=== PATIENT | female | born 1975 | race African-American/Black ===

== ENCOUNTER 2017-10-07 21:40 | Emergency (ER) | payer OTHER ==
--- NOTE | 2017-10-07 22:23 | ER ---
Nurse's Notes [facility] Name: Iza Negron Age: 42 yrs Sex: Female : 1975 Arrival Date: 10/07/2017 Time: 21:41 Bed 12 Private MD: Diagnosis: Sebaceous cyst Presentation: 10/07 21:48 Presenting complaint: Patient states: "knot" on scalp x several months/years. Reports sr5 area is tender and getting bigger in size. Transition of care: patient was not received from another setting of care. Onset of symptoms is unknown. Risk Assessment: Do you want to hurt yourself or someone else? Patient reports no desire to harm self or others. Initial Sepsis Screen: Does the patient meet any 2 criteria? No. Patient's initial sepsis screen is negative. Does the patient have a suspected source of infection? No. Patient's initial sepsis screen is negative. Care prior to arrival: None. 21:48 Method Of Arrival: Ambulatory sr5 21:48 Acuity: JUVENTINO 4 sr5 Triage Assessment: 21:49 General: Appears in no apparent distress. Behavior is calm, cooperative. Pain: sr5 Complains of pain in right frontal area Quality of pain is described as pressure. Neuro: No deficits noted. Cardiovascular: No deficits noted. Respiratory: No deficits noted. Derm: raised area noted to scalp, pt states she tries to squeeze it but nothing comes out. Reports this area has been there for months possibly years, has never gone away completely, but is getting larger in size. 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 - Social history:: Smoking status: Patient/guardian denies using tobacco, never smoked. - Ebola Screening: : Patient negative for fever greater than or equal to 101.5 degrees Fahrenheit, and additional compatible Ebola Virus Disease symptoms. Screenin:56 Abuse screen: Denies threats or abuse. Denies injuries from another. Nutritional bs1 screening: No deficits noted. Tuberculosis screening: No symptoms or risk factors identified. Fall Risk None identified. Assessment: 21:56 General: Appears in no apparent distress. comfortable, Behavior is calm, cooperative, bs1 appropriate for age. Pain: Complains of pain in scalp and right frontal area. Neuro: Level of Consciousness is awake, alert, obeys commands. Cardiovascular: Heart tones S1 S2 present Capillary refill < 3 seconds Patient's skin is warm and dry. Respiratory: Airway is patent. GI: No signs and/or symptoms were reported involving the gastrointestinal system. : No signs and/or symptoms were reported regarding the genitourinary system. EENT: No signs and/or symptoms were reported regarding the EENT system. Derm: Skin is intact, knot on right frontal scalp. Musculoskeletal: Circulation, motion, and sensation intact. Capillary refill < 3 seconds, Range of motion: intact in all extremities. 22:35 Reassessment: Patient appears in no apparent distress at this time. Patient and/or bs1 family updated on plan of care and expected duration. Pain level reassessed. Patient is alert, oriented x 3, equal unlabored respirations, skin warm/dry/pink. Patient states understanding of discharge instructions/POC. Vital Signs: 21:49 BP 125 / 73; Pulse 73; Resp 12; Temp 97.9; Pulse Ox 100% on R/A; Weight 99.79 kg; sr5 Height 6 ft. 1 in. (185.42 cm); Pain 8/10; 22:36 BP 111 / 65; Pulse 70; Resp 16; Pulse Ox 100% ; Pain 5/10; bs1 21:49 Body Mass Index 29.03 (99.79 kg, 185.42 cm) sr5 ED Course: 21:41 Patient arrived in ED. es 21:49 Triage completed. sr5 21:49 Arm band placed on Patient placed in an exam room. sr5 21:52 Hamilton Jefferson NP is PHCP. pm1 21:53 Hermilo Chao MD is Attending Physician. pm1 21:53 Paty Richards, KENNETH is Primary Nurse. bs1 21:56 Patient has correct armband on for positive identification. Pulse ox on. NIBP on. bs1 22:22 Saleem Perez MD is Referral Physician. pm1 22:22 Antwan Calderon MD is Referral Physician. pm1 22:35 No provider procedures requiring assistance completed. Patient did not have IV access bs1 during this emergency room visit. Administered Medications: No medications were administered Outcome: 22:22 Discharge ordered by MD. pm1 22:36 Discharged to home bs1 22:36 Discharged to home ambulatory. 22:36 Condition: stable 22:36 Discharge instructions given to patient, Instructed on discharge instructions, follow up and referral plans. medication usage, Demonstrated understanding of instructions, follow-up care, medications, Prescriptions given X 2. 22:37 Patient left the ED. bs1 Signatures: Gabriella Gutierrez Patrick, NP DIE CLEANER pm1 Ish Leonard RN RN sr5 Paty Richards, RN RN bs1
--- NOTE | 2017-10-07 22:23 | EDPHYS ---
Physician Documentation [facility] Name: Iza Negron Age: 42 yrs Sex: Female : 1975 Arrival Date: 10/07/2017 Time: 21:41 Bed 12 Private MD: ED Physician Hermilo Chao HPI: 10/07 22:30 This 42 yrs old Black Female presents to ER via Ambulatory with complaints of KNOT ON pm1 HEAD. 22:30 the patient presents with a swollen area of the scalp. Description: raised. Onset: The pm1 symptoms/episode began/occurred Present to scalp for multiple years and slowly getting bigger. Possible cause(s): unknown. Associated signs and symptoms: Pertinent negatives: discharge, drainage, fever. Modifying factors: the symptoms are alleviated by nothing, the symptoms are aggravated by touching, combing hair. Severity of symptoms: in the emergency department the symptoms are actually worse. The patient has not recently seen a physician. 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 - Social history:: Smoking status: Patient/guardian denies using tobacco, never smoked. - Ebola Screening: : Patient negative for fever greater than or equal to 101.5 degrees Fahrenheit, and additional compatible Ebola Virus Disease symptoms. ROS: 22:30 Constitutional: Negative for fever, chills, and weight loss, Eyes: Negative for injury, pm1 pain, redness, and discharge, ENT: Negative for injury, pain, and discharge, Neck: Negative for injury, pain, and swelling, Cardiovascular: Negative for chest pain, palpitations, and edema, Respiratory: Negative for shortness of breath, cough, wheezing, and pleuritic chest pain, Abdomen/GI: Negative for abdominal pain, nausea, vomiting, diarrhea, and constipation, Back: Negative for injury and pain, : Negative for injury, bleeding, discharge, and swelling, MS/Extremity: Negative for injury and deformity. 22:30 Neuro: Negative for headache, weakness, numbness, tingling, and seizure. 22:30 Skin: Positive for of the scalp, bump. Exam: 22:30 Constitutional: This is a well developed, well nourished patient who is awake, alert, pm1 and in no acute distress. 22:30 Eyes: Pupils equal round and reactive to light, extra-ocular motions intact. Lids and lashes normal. Conjunctiva and sclera are non-icteric and not injected. Cornea within normal limits. Periorbital areas with no swelling, redness, or edema. ENT: Nares patent. No nasal discharge, no septal abnormalities noted. Tympanic membranes are normal and external auditory canals are clear. Oropharynx with no redness, swelling, or masses, exudates, or evidence of obstruction, uvula midline. Mucous membranes moist. Neck: Trachea midline, no thyromegaly or masses palpated, and no cervical lymphadenopathy. Supple, full range of motion without nuchal rigidity, or vertebral point tenderness. No Meningismus. Chest/axilla: Normal chest wall appearance and motion. Nontender with no deformity. No lesions are appreciated. Cardiovascular: Regular rate and rhythm with a normal S1 and S2. No gallops, murmurs, or rubs. Normal PMI, no JVD. No pulse deficits. Respiratory: Lungs have equal breath sounds bilaterally, clear to auscultation and percussion. No rales, rhonchi or wheezes noted. No increased work of breathing, no retractions or nasal flaring. Abdomen/GI: Soft, non-tender, with normal bowel sounds. No distension or tympany. No guarding or rebound. No evidence of tenderness throughout. Back: No spinal tenderness. No costovertebral tenderness. Full range of motion. Skin: Warm, dry with normal turgor. Normal color with no rashes, no lesions, and no evidence of cellulitis. MS/ Extremity: Pulses equal, no cyanosis. Neurovascular intact. Full, normal range of motion. Neuro: Awake and alert, GCS 15, oriented to person, place, time, and situation. Cranial nerves II-XII grossly intact. Motor strength 5/5 in all extremities. Sensory grossly intact. Cerebellar exam normal. Normal gait. 22:30 Head/face: Exam is negative for erythema, Noted is no obvious of injury or deformity except Tenderness to sebaceous cyst to scalp. Vital Signs: 21:49 BP 125 / 73; Pulse 73; Resp 12; Temp 97.9; Pulse Ox 100% on R/A; Weight 99.79 kg; sr5 Height 6 ft. 1 in. (185.42 cm); Pain 8/10; 22:36 BP 111 / 65; Pulse 70; Resp 16; Pulse Ox 100% ; Pain 5/10; bs1 21:49 Body Mass Index 29.03 (99.79 kg, 185.42 cm) sr5 MDM: 22:01 Patient medically screened. pm1 22:21 Data reviewed: vital signs. Data interpreted: Pulse oximetry: on room air is 100 %. pm1 Interpretation: normal. Counseling: I had a detailed discussion with the patient and/or guardian regarding: the historical points, exam findings, and any diagnostic results supporting the discharge/admit diagnosis, the need for outpatient follow up, for definitive care, a general surgeon, a plastic surgeon, to return to the emergency department if symptoms worsen or persist or if there are any questions or concerns that arise at home. Administered Medications: No medications were administered Disposition: 10/08 04:46 Co-signature as Attending Physician, Hermilo Chao MD I agree with the assessment and tw4 plan of care. Attestation: The patient's history, exam findings, diagnostics, and a summary of any interventions or procedures was reviewed in detail with Hamilton Jefferson NP. Disposition: 10/07/17 22:22 Discharged to Home. Impression: Sebaceous cyst. - Condition is Stable. - Discharge Instructions: Epidermal Cyst. - Prescriptions for Tylenol- Codeine #3 300-30 mg Oral Tablet - take 2 tablets by ORAL route every 6 hours As needed; 20 tablet. Bactrim DS 800- 160 mg Oral Tablet - take 1 tablet by ORAL route every 12 hours for 10 days; 20 tablet. - Medication Reconciliation Form, Thank You Letter, Antibiotic Education, Prescription Opioid Use form. - Follow up: Emergency Department; When: As needed; Reason: Worsening of condition. Follow up: Saleem Perez MD; When: 2 - 3 days; Reason: Recheck today's complaints, Continuance of care, Re-evaluation by your physician. Follow up: Antwan Calderon MD; When: 2 - 3 days; Reason: Recheck today's complaints, Continuance of care, Re-evaluation by your physician. - Problem is new. - Symptoms have improved. Signatures: Hamilton Jefferson IT SUPPORT CONSULTANT IT SUPPORT CONSULTANT pm1 Ish Leonard RN RN sr5 Paty Richards RN RN bs1 Hermilo Chao MD MD tw4 Corrections: (The following items were deleted from the chart) 10/07 22:37 22:22 10/07/2017 22:22 Discharged to Home. Impression: Sebaceous cyst. Condition is bs1 Stable. Forms are Medication Reconciliation Form, Thank You Letter, Antibiotic Education, Prescription Opioid Use. Follow up: Emergency Department; When: As needed; Reason: Worsening of condition. Follow up: Saleem Perez; When: 2 - 3 days; Reason: Recheck today's complaints, Continuance of care, Re-evaluation by your physician. Follow up: Antwan Calderon; When: 2 - 3 days; Reason: Recheck today's complaints, Continuance of care, Re-evaluation by your physician. Problem is new. Symptoms have improved. pm1
[2017-10-07 22:47] VITALS: TEMP 97.9; O2SAT 100
[2017-10-07 22:49] VITALS: BP 111/65
== END 2017-10-07 22:37 | disposition home or self-care (01) ==
LOC: ER 21:40
DX: L72.3 Sebaceous cyst (principal)
CPT/HCPCS: 99283

== ENCOUNTER 2017-10-14 10:06 | Day surgery (SDC) | payer OTHER ==
[~2017-10-14 10:06] MED LIST: CEFAZOLIN/SWI 1gm 1 GM/10 ML SYR IVP SCH
[2017-10-14] MEDS ORDERED: Ringers Lactate 1,000 ML IV ONE (10:22)
[2017-10-14] MEDS ORDERED: CEFAZOLIN/SWI 1gm 1 GM/10 ML SYR ONE (10:22)
[2017-10-14 10:29] LABS: Specific Gravity 1.025 (1.005-1.030)
[2017-10-14] MEDS ORDERED: BUPIVACA 0.25%/EPI 0.0005% MDV 50 ML VIAL ONE (12:01)
[2017-10-14] MEDS ORDERED: FENTANYL CITR 100 MCG/2 ML ONE (12:01)
[2017-10-14] MEDS ORDERED: PROPOFOL 200 MG/20 ML VIAL IV ONE (12:01)
[2017-10-14] MEDS ORDERED: MIDAZOLAM HCL 2 MG/2 ML INJ ONE (12:01)
[2017-10-14] MEDS ORDERED: ONDANSETRON HCL 40 MG/20 ML VIAL ONE (12:29)
--- NOTE | 2017-10-14 12:50 | P.OP ---
Preoperative diagnosis: Right Scalp Mass Postoperative diagnosis: Right Scalp Sebaceous Cyst Primary procedure: Excision of Right Scalp Mass Anesthesia: GETA + Local Estimated blood loss: <20cc Specimen: Scalp Mass Findings: Sebaceous Cyst extending to galea Complications: None Transferred to: Recovery Room Condition: Good
[2017-10-14] MEDS: MEPERIDINE HCL 50 MG/ML AMP ONE ×4 (13:25→13:45)
[2017-10-14] MEDS ORDERED: PROMETHAZINE 25 MG/ML VIAL ONE (13:26)
[2017-10-14] MEDS ORDERED: CODEINE 30MG/APAP 300MG TAB ONE (15:12)
[2017-10-14 15:58] VITALS: BP 118/71; TEMP 97.1; O2SAT 100
--- NOTE | 2017-10-14 23:59 | OP ---
Date of Procedure: 10/14/2017 Surgeon: Saleem Perez MD, Preoperative Diagnosis: Right scalp mass. Postoperative Diagnosis: Right scalp mass/sebaceous cyst. Primary Procedure: Excision of right scalp mass. Anesthesia: General endotracheal, local, with 0.25% Marcaine with epinephrine. Estimated Blood Loss: Less than 20 cc. Specimen: Scalp mass. Findings: Sebaceous cyst extending to the galea. Complication: None. Disposition: Transferred to recovery room in good condition. Procedure In Detail: After informed consent was obtained, the patient was brought to the operating r oom, prepped and draped in the usual sterile fashion. After adequate anesthesia was achieved, approx imately a 5 x 4 cm scalp mass to the right of the parietal suture was appreciated. This was anesthet ized appropriately, and an ellipse of skin was taken down to allow for opening of the skin to the sub cutaneous layer. Blunt dissection continued down to expose a sebaceous cyst. The sebum from the ins jasmyne was expressed partially through the ruptured capsule on the surface. There was evidence of prior rupture as the capsule had spiculations. This was circumferentially dissected using both electrocau lee as well as blunt dissection until the capsule was completely removed. The area was copiously ir rigated. Hemostasis was achieved with electrocautery at this time. The skin flaps were then undermi kenny slightly. It appeared that the scalp mass went all the way down to the galea, but did not invest through it. Hemostasis was achieved with electrocautery. After copiously irrigating multiple times , there appeared to be good hemostasis as well. The subcutaneous layers were then reapproximated usi ng a continuous 3-0 Vicryl suture with good approximation of tissues. Bleeding was extremely minimal at this point. The area was irrigated once again and found to have good hemostasis. Therefore, the scalp was then closed using a vertical mattress suture and simple interrupted sutures to reapproxima te the edges. Sterile dressing was then placed over top. The patient tolerated the procedure well w ithout evidence of complication and transferred to PACU in good condition. All counts were correct a t the end of the case. JUSTINE/TAWANNA Voice ID: [id number] Report ID: [id number]
== END 2017-10-14 15:45 | disposition home or self-care (01) ==
LOC: OR 10:06
PROVIDERS: ATTEND Surgery
PROC: 0JB00ZZ Excision of Scalp Subcutaneous Tissue and Fascia, Open Approach (ICD-10-PCS; principal; 2017-10-14 11:45)
DX: L72.11 Pilar cyst (principal)
CPT/HCPCS: 81025; 88304; 88305; J0690; J2175; J2250; J2405; J2550; J3010

== ENCOUNTER 2018-01-29 16:17 | Emergency (ER) | payer OTHER ==
--- NOTE | 2018-01-29 19:45 | ER ---
Nurse's Notes [facility] Name: Iza Negron Age: 42 yrs Sex: Female : 1975 Arrival Date: 01/29/2018 Time: 16:17 Bed 20 Private MD: None, None Diagnosis: Acute upper respiratory infection, unspecified Presentation: 01/29 16:58 Presenting complaint: Patient states: cough, congestion, body aches, and sore throat aa5 that began yesterday. Transition of care: patient was not received from another setting of care. Onset of symptoms was January 2018. Risk Assessment: Do you want to hurt yourself or someone else? Patient reports no desire to harm self or others. Initial Sepsis Screen: Does the patient meet any 2 criteria? No. Patient's initial sepsis screen is negative. Does the patient have a suspected source of infection? No. Patient's initial sepsis screen is negative. Care prior to arrival: None. 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 - Social history:: Smoking status: Patient/guardian denies using tobacco. - Ebola Screening: : No symptoms or risks identified at this time. Screenin:45 Abuse screen: Denies threats or abuse. Denies injuries from another. Nutritional aj1 screening: No deficits noted. Tuberculosis screening: No symptoms or risk factors identified. 19:15 Fall Risk Ambulatory Aid- None/Bed Rest/Nurse Assist (0 pts). Gait- Normal/Bed cc3 Rest/Wheelchair (0 pts) Mental Status- Oriented to own ability (0 pts). Assessment: 17:45 General: Appears in no apparent distress. comfortable, Behavior is calm, cooperative, aj1 appropriate for age. Pain: Complains of pain in left aspect of posterior pharynx and right aspect of posterior pharynx Pain does not radiate. Quality of pain is described as soreness. Neuro: Level of Consciousness is awake, alert, obeys commands. Cardiovascular: Patient's skin is warm and dry. Respiratory: Reports cough that is non-productive, Airway is patent Respiratory effort is even, unlabored, Respiratory pattern is regular, symmetrical, Breath sounds are clear bilaterally. Denies shortness of breath. GI: No signs and/or symptoms were reported involving the gastrointestinal system. : No signs and/or symptoms were reported regarding the genitourinary system. EENT: Reports sore throat. Derm: No signs and/or symptoms reported regarding the dermatologic system. Skin is pink, warm \T\ dry. normal. Musculoskeletal: No signs and/or symptoms reported regarding the musculoskeletal system. Circulation, motion, and sensation intact. 18:53 Reassessment: Patient appears in no apparent distress at this time. No changes from aj1 previously documented assessment. Patient and/or family updated on plan of care and expected duration. Pain level reassessed. Patient is alert, oriented x 3, equal unlabored respirations, skin warm/dry/pink. 19:15 Reassessment: Patient appears in no apparent distress at this time. Patient and/or cc3 family updated on plan of care and expected duration. Pain level reassessed. Patient is alert, oriented x 3, equal unlabored respirations, skin warm/dry/pink. 19:50 Reassessment: Patient appears in no apparent distress at this time. Patient and/or cc3 family updated on plan of care and expected duration. Pain level reassessed. Patient is alert, oriented x 3, equal unlabored respirations, skin warm/dry/pink. THAO Blackburn discharged the patient home, no prescription given. No IV cannula in situ. Patient left ER vitally stable and ambulatory. Vital Signs: 16:59 BP 140 / 84; Pulse 71; Resp 18 S; Temp 99.0(O); Pulse Ox 100% on R/A; Weight 99.79 kg aa5 (R); Height 6 ft. 1 in. (185.42 cm) (R); Pain 9/10; 18:54 BP 132 / 68; Pulse 73; Resp 18; Pulse Ox 100% on R/A; aj1 19:39 BP 106 / 55; Pulse 65; Resp 18 S; Temp 98.1(O); Pulse Ox 98% on R/A; cc3 16:59 Body Mass Index 29.03 (99.79 kg, 185.42 cm) aa5 ED Course: 16:17 Patient arrived in ED. mr 16:18 None, None is Private Physician. mr 16:58 Triage completed. aa5 16:58 Arm band placed on. aa5 17:04 Cad[facility] Palacios [facility]C [facility] kb 17:04 Tay Torres MD is Attending Physician. kb 17:45 Sabrina Pierce, RN is Primary Nurse. aj1 17:45 Patient has correct armband on for positive identification. Bed in low position. Call aj1 light in reach. Side rails up X 1. 17:45 No provider procedures requiring assistance completed. aj1 19:50 Patient did not have IV access during this emergency room visit. cc3 Administered Medications: No medications were administered Outcome: 19:44 Discharge ordered by . kb 19:50 Discharged to home ambulatory. cc3 19:50 Condition: stable 19:50 Discharge instructions given to patient, Instructed on discharge instructions, follow up and referral plans. Demonstrated understanding of instructions, follow-up care. 19:55 Patient left the ED. cc3 Addendum: 02/01/2018 17:22 Addendum: Culture Results: Positive throat culture. Phone call Attempt #1 spoke with s s patient who reports she is not feeling much better. Called in Amoxicillin 500 mg PO TID for 10 days #30 as prescribed by Hamilton Jefferson NP to [facility] pharmacy in [place], [place]. Signatures: Cadence Palacios FNP-C FNP-Sabrina Morel RN RN aj Missy Maradiaga, Kelsey RN KENNETH [facility] Alicia Hnuter RN RN Radha Hodge cc3
--- NOTE | 2018-01-29 19:45 | EDPHYS ---
Physician Documentation [facility] Name: Iza Negron Age: 42 yrs Sex: Female : 1975 Arrival Date: 01/29/2018 Time: 16:17 Bed 20 Private MD: None, None ED Physician Tay Torres HPI: 01/29 18:12 This 42 yrs old Black Female presents to ER via Ambulatory with complaints of Flu kb Symptoms. 18:12 The patient or guardian reports cough, that is intermittent, described as mild, with no kb sputum, flu symptoms, low-grade fever, myalgias. Onset: The symptoms/episode began/occurred yesterday. Severity of symptoms: At their worst the symptoms were moderate, in the emergency department the symptoms are unchanged. Modifying factors: The symptoms are alleviated by nothing, the symptoms are aggravated by nothing. Associated signs and symptoms: Pertinent positives: sore throat, Pertinent negatives: chest pain, diarrhea, ear ache, fever, nausea, rhinorrhea, vomiting. The patient has not experienced similar symptoms in the past. The patient has not recently seen a physician. 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 - Social history:: Smoking status: Patient/guardian denies using tobacco. - Ebola Screening: : No symptoms or risks identified at this time. ROS: 18:12 Neck: Negative for injury, pain, and swelling, Cardiovascular: Negative for chest pain, kb palpitations, and edema, Abdomen/GI: Negative for abdominal pain, nausea, vomiting, diarrhea, and constipation, Back: Negative for injury and pain, : Negative for injury, bleeding, discharge, and swelling, MS/Extremity: Negative for injury and deformity, Skin: Negative for injury, rash, and discoloration, Neuro: Negative for headache, weakness, numbness, tingling, and seizure. 18:12 Constitutional: Positive for body aches, chills, fatigue, malaise, Negative for fever, poor PO intake, weight loss. 18:12 ENT: Positive for sore throat. 18:12 Respiratory: Positive for cough, Negative for dyspnea on exertion, hemoptysis, orthopnea, pleurisy, shortness of breath, sputum production, wheezing. Exam: 18:12 Constitutional: This is a well developed, well nourished patient who is awake, alert, kb and in no acute distress. Head/Face: Normocephalic, atraumatic. ENT: Nares patent. No nasal discharge, no septal abnormalities noted. Tympanic membranes are normal and external auditory canals are clear. Oropharynx with no redness, swelling, or masses, exudates, or evidence of obstruction, uvula midline. Mucous membranes moist. Neck: Trachea midline, no thyromegaly or masses palpated, and no cervical lymphadenopathy. Supple, full range of motion without nuchal rigidity, or vertebral point tenderness. No Meningismus. Chest/axilla: Normal chest wall appearance and motion. Nontender with no deformity. No lesions are appreciated. Cardiovascular: Regular rate and rhythm with a normal S1 and S2. No gallops, murmurs, or rubs. Normal PMI, no JVD. No pulse deficits. Respiratory: Lungs have equal breath sounds bilaterally, clear to auscultation and percussion. No rales, rhonchi or wheezes noted. No increased work of breathing, no retractions or nasal flaring. Abdomen/GI: Soft, non-tender, with normal bowel sounds. No distension or tympany. No guarding or rebound. No evidence of tenderness throughout. Skin: Warm, dry with normal turgor. Normal color with no rashes, no lesions, and no evidence of cellulitis. MS/ Extremity: Pulses equal, no cyanosis. Neurovascular intact. Full, normal range of motion. Neuro: Awake and alert, GCS 15, oriented to person, place, time, and situation. Cranial nerves II-XII grossly intact. Motor strength 5/5 in all extremities. Sensory grossly intact. Cerebellar exam normal. Normal gait. Vital Signs: 16:59 BP 140 / 84; Pulse 71; Resp 18 S; Temp 99.0(O); Pulse Ox 100% on R/A; Weight 99.79 kg aa5 (R); Height 6 ft. 1 in. (185.42 cm) (R); Pain 9/10; 18:54 BP 132 / 68; Pulse 73; Resp 18; Pulse Ox 100% on R/A; aj1 19:39 BP 106 / 55; Pulse 65; Resp 18 S; Temp 98.1(O); Pulse Ox 98% on R/A; cc3 16:59 Body Mass Index 29.03 (99.79 kg, 185.42 cm) aa5 MDM: 17:36 Patient medically screened. kb 18:03 Data reviewed: vital signs, nurses notes. Data interpreted: Pulse oximetry: on room air kb is 100 %. Interpretation: normal. 18:12 Counseling: I had a detailed discussion with the patient and/or guardian regarding: the kb historical points, exam findings, and any diagnostic results supporting the discharge/admit diagnosis, lab results, the need for outpatient follow up, a family practitioner, to return to the emergency department if symptoms worsen or persist or if there are any questions or concerns that arise at home. 01/29 17:05 Order name: Flu; Complete Time: 19:15 kb 01/29 17:05 Order name: Strep; Complete Time: 19:14 kb 01/29 19:14 Order name: Throat Culture EDMS Administered Medications: No medications were administered Disposition: 01/29/18 19:44 Discharged to Home. Impression: Acute upper respiratory infection, unspecified. - Condition is Stable. - Discharge Instructions: Upper Respiratory Infection, Adult, [id number]. - Medication Reconciliation Form, Thank You Letter, Antibiotic Education, Prescription Opioid Use form. - Follow up: Emergency Department; When: As needed; Reason: Worsening of condition. Follow up: Private Physician; When: 2 - 3 days; Reason: Recheck today's complaints, Continuance of care, Re-evaluation by your physician. Addendum: 02/04/2018 01:38 Co-signature as Attending Physician, Tay Torres MD. r n Signatures: Dispatcher [employer] EDMS Cadence Palacios, ROASLIE-C KEG FILLER-CkTay Downs MD MD rn Calderon, Audri, RN RN aa5 Radha Hodge cc3 Corrections: (The following items were deleted from the chart) 01/29 19:55 19:44 01/29/2018 19:44 Discharged to Home. Impression: Acute upper respiratory cc3 infection, unspecified. Condition is Stable. Forms are Medication Reconciliation Form, Thank You Letter, Antibiotic Education, Prescription Opioid Use. Follow up: Emergency Department; When: As needed; Reason: Worsening of condition. Follow up: Private Physician; When: 2 - 3 days; Reason: Recheck today's complaints, Continuance of care, Re-evaluation by your physician. kb
[2018-01-29 20:02] VITALS: BP 106/55; TEMP 98.1; O2SAT 98
== END 2018-01-29 19:55 | disposition home or self-care (01) ==
LOC: ER 16:17
DX: J06.9 Acute upper respiratory infection, unspecified (principal)
CPT/HCPCS: 87070; 87081; 87804; 99281